=== PATIENT | female | born 1995 | race Two or more races ===

== ENCOUNTER 2016-11-13 18:42 | Emergency (ER) | payer SELFPAY ==
[~2016-11-13] VITALS: Ht 165.1 cm; Wt 72.6 kg
[2016-11-13 18:56] VITALS: BP 128/83
== END 2016-11-13 20:05 | disposition home or self-care (01) ==
LOC: ER 18:45
DX: S39.012A Strain of muscle, fascia and tendon of lower back, initial encounter (principal); M54.32 Sciatica, left side; X58.XXXA Exposure to other specified factors, initial encounter; Y92.89 Other specified places as the place of occurrence of the external cause; Y93.89 Activity, other specified; Y99.8 Other external cause status
CPT/HCPCS: A4606; Z7610